=== PATIENT | female | born 1950 ===

== ENCOUNTER 2017-08-27 12:52 | Outpatient (CLI) | payer MEDICARE ==
--- NOTE | 2017-08-27 15:18 | CT ---
CT LUMBAR SPINE WITHOUT CONTRAST: HISTORY: L1 compression fracture. Back pain. COMPARISON: None. TECHNIQUE: CT lumbar spine is performed without contrast. Reformatted images are submitted for interpretation. FINDINGS: The gallbladder is surgically absent. The visualized solid organs are grossly unremarkable. No evid ence of obstructive uropathy. Visualized alimentary canal is unremarkable. There is mild bone demineralization. The visualized upper sacral alae are preserved. There is appropriate vertebral body height at L2, L3, L4, and L5. No spondylolisthesis or spondyloly sis. There is severe compression fracture with vertebra plana with moderate to severe loss of verteb ral body height at L1. There is retropulsion of the posterior L1 vertebral body. There is no signif icant paraspinal/retroperitoneal hematoma. T11-T12: No significant central canal stenosis or foraminal narrowing. T12-L1: Vacuum disk phenomenon. No high-grade central canal stenosis or high-grade foraminal narrow ing. L1 vertebral body: There is retropulsion with at least mild to moderate central canal stenosis. L1-L2: No significant central canal stenosis. Mild bilateral foraminal narrowing. L2-L3: No significant central canal stenosis. Mild bilateral foraminal narrowing. L3-L4: There is a generalized disk bulge, ligamentum flavum thickening, and facet hypertrophy that r esult in mild to moderate central canal stenosis. Mild bilateral foraminal narrowing. L4-L5: Generalized disk bulge, ligamentum flavum thickening, and facet hypertrophy result in mild to moderate central canal stenosis. Mild bilateral foraminal narrowing. L5-S1: Generalized disk bulge does not cause any significant central canal stenosis. Minimal hand i cutter ior element hypertrophy. Mild bilateral foraminal narrowing. IMPRESSION: 1. Moderate to severe compression fracture at L1 with associated retropulsion. No additional lumbar spine fracture. 2. Degenerative change of the lumbar spine as above. There is moderate to severe central canal steno sis at multiple levels. No evidence of high-grade foraminal narrowing. POS: [facility]
== END 2017-08-27 12:53 | disposition home or self-care (01) ==
LOC: CT 12:52
PROVIDERS: ATTEND Anesthesiology Pain Medicine
DX: S32.010G Wedge compression fracture of first lumbar vertebra, subsequent encounter for fracture with delayed healing (principal); M47.896 Other spondylosis, lumbar region; M99.53 Intervertebral disc stenosis of neural canal of lumbar region
CPT/HCPCS: 72131